=== PATIENT | female | born 2000 | race African-American/Black ===

== ENCOUNTER 2022-06-03 23:03 | Emergency (ER) | payer OTHER ==
[~2022-06-03] VITALS: Ht 170.2 cm; Wt 81.6 kg
[2022-06-03] MEDS ORDERED: THIAMINE HCL 100 MG TABLET PO ONE (23:15)
[2022-06-03] MEDS ORDERED: IV NORMAL SALINE 1000 ML BAG IV ONE (23:15)
[2022-06-03] MEDS ORDERED: CHLORDIAZEPOXIDE HCL 25 MG CAPSULE PO ONE (23:15)
--- NOTE | 2022-06-03 23:16 | NUR ---
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 informed of plan of care, placed on monitor, awaiting MD exam.
[2022-06-03] MEDS ORDERED: LAMO25TA5 PO (23:17)
[2022-06-03] MEDS ORDERED: OXCA150T5 PO (23:17)
[2022-06-03] MEDS ORDERED: CHLORDIAZEPOXIDE HCL 25 MG CAPSULE ONE (23:51)
[2022-06-03] MEDS ORDERED: THIAMINE HCL 100 MG TABLET ONE (23:51)
[2022-06-03 23:59] LABS: HEMATOCRIT 36.5 % (31.2-41.9); MEAN CORPUSCULAR HEMOGLOBIN 32.3 uug (24.7-32.8); MEAN CORPUSCULAR VOLUME 97.6 fL (75.5-95.3); PLATELET COUNT (AUTO) 339 K/uL (179-408)
--- NOTE | 2022-06-04 00:15 | NUR ---
MD has seen patient, family at bedside, updated on care, medicated as per order.
[2022-06-04 00:28] LABS: *BILIRUBIN,URIN NEGATIVE (NEGATIVE); *BLOOD, URINE 3+ (NEGATIVE); *CLARITY,URINE CLEAR (CLEAR); *KETONES,URINE NEGATIVE (NEGATIVE); *UROBILINOGEN,URINE 0.2 E.U./dl (NORMAL); LEUKOCYTE ESTERASE ,URINE TRACE (NEGATIVE); NITRITE, URINE NEGATIVE (NEGATIVE); UGLUCOSE NEGATIVE (NEGATIVE)
[2022-06-04 00:30] LABS: ALANINE AMINOTRANSFERASE 18 U/L (14-59); ALKALINE PHOSPHATASE 73 U/L (50-136); ASPARTATE AMINOTRANSFERASE 13 U/L (15-37); BILIRUBIN,DIRECT < 0.1 mg/dL (0.0-0.2); BILIRUBIN,TOTAL 0.3 mg/dL (0.2-1.0); CARBON DIOXIDE 23 mmol/L (21-32); CHLORIDE 105 mmol/L (98-107); CREATININE 0.5 mg/dL (0.6-1.3); GLUCOSE 97 mg/dL (74-106); POTASSIUM 3.5 mmol/L (3.5-5.1); UREA NITROGEN, BLOOD 6 mg/dL (7-18)
[2022-06-04 00:34] LABS: *COLOR,URINE STRAW (YELLOW)
--- NOTE | 2022-06-04 00:42 | NUR ---
Sitting up at bedside talking with family, no s/s of any distress.
[2022-06-04 00:47] LABS: *AMPHETAMINE, URINE NEGATIVE (NEGATIVE); *CANNABINOID, URINE NEGATIVE (NEGATIVE); *COCCAINE, URINE NEGATIVE (NEGATIVE); *PHENCYCLIDINE SCREEN,URINE NEGATIVE (NEGATIVE); RBC,URINE 20-50 /HPF (0-3); SQUAMOUS EPITHELIAL CELL,UR MANY /HPF (NONE SEEN); WBC,URINE 0-3 /HPF (0-3)
[2022-06-04 00:49] LABS: BACTERIA,URINE MODERATE /HPF (NONE SEEN)
[2022-06-04 00:58] LABS: ETHANOL 143 MG/DL (0-0)
--- NOTE | 2022-06-04 01:23 | NUR ---
IVF COMPLETE, MD WAS TALKING TO PATIENT AT BEDSIDE, OKAY FOR DISCHARGE HOME WITH FAMILY, HL REMOVED.
[2022-06-04 01:25] VITALS: BP 114/66
== END 2022-06-04 01:26 | disposition home or self-care (01) ==
LOC: ER 23:03
DX: F10.129 Alcohol abuse with intoxication, unspecified (principal); Z90.49 Acquired absence of other specified parts of digestive tract; Z79.899 Other long term (current) drug therapy; Y90.6 Blood alcohol level of 120-199 mg/100 ml
CPT/HCPCS: 80076; 80048; 81001; 82962; 83735; 85025; 36415; 87040; 80320; 80307; 99284; 96360; J7040; A4663; G0480